=== PATIENT | female | born 1990 | race Two or more races ===

== ENCOUNTER 2021-12-01 08:33 | Outpatient (CLI) | payer OTHER | END 2021-12-01 10:00 | disposition home or self-care (01) | LOC: PRENATAL 08:33 | PROVIDERS: ATTEND Obstetrics & Gynecology Maternal & Fetal Medicine | DX: O36.80X0 Pregnancy with inconclusive fetal viability, not applicable or unspecified (principal); Z36.0 Encounter for antenatal screening for chromosomal anomalies; Z3A.13 13 weeks gestation of pregnancy; Z14.8 Genetic carrier of other disease ==

== ENCOUNTER 2022-01-23 13:33 | Outpatient (CLI) | payer OTHER | END 2022-01-23 14:55 | disposition home or self-care (01) | LOC: PRENATAL 13:33 | PROVIDERS: ATTEND Obstetrics & Gynecology Maternal & Fetal Medicine | DX: O35.0XX0 Maternal care for (suspected) central nervous system malformation in fetus, not applicable or unspecified (principal); O35.3XX0 Maternal care for (suspected) damage to fetus from viral disease in mother, not applicable or unspecified; Z14.8 Genetic carrier of other disease; Z3A.21 21 weeks gestation of pregnancy ==

== ENCOUNTER 2022-04-28 11:55 | Outpatient (CLI) | payer OTHER ==
[2022-04-29] MEDS ORDERED: PRENATAL CAPLE1 EAC1 PO (05:40)
== END 2022-04-28 14:15 | disposition home or self-care (01) ==
LOC: PRENATAL 11:55
PROVIDERS: ATTEND Obstetrics & Gynecology Maternal & Fetal Medicine
DX: O26.849 Uterine size-date discrepancy, unspecified trimester (principal); O36.8199 Decreased fetal movements, unspecified trimester, other fetus; O41.00X0 Oligohydramnios, unspecified trimester, not applicable or unspecified; Z3A.34 34 weeks gestation of pregnancy

== ENCOUNTER 2022-04-29 05:18 | Inpatient (IN) | payer OTHER ==
[~2022-04-29] VITALS: Ht 162.6 cm; Wt 2.7 kg
[2022-04-29] MEDS ORDERED: PRENATAL CAPLE1 EAC1 PO (05:40)
== END 2022-05-08 12:35 | disposition home or self-care (01) | DRG 787 ==
LOC: OBS/DEL 05:18 → LDR 09:57 → OB/GYN 09:57 → LDR 21:55 → OB/GYN 05-05 10:20
PROVIDERS: ADMIT Obstetrics & Gynecology; ATTEND Obstetrics & Gynecology
PROC: 4A1HXCZ Monitoring of Products of Conception, Cardiac Rate, External Approach (ICD-10-PCS; 2022-04-29)
PROC: BY4CZZZ Ultrasonography of Second Trimester, Single Fetus (ICD-10-PCS; 2022-05-04)
PROC: 10D00Z1 Extraction of Products of Conception, Low, Open Approach (ICD-10-PCS; principal; 2022-05-05 12:15)
DX: O42.012 Preterm premature rupture of membranes, onset of labor within 24 hours of rupture, second trimester (principal); O41.03X0 Oligohydramnios, third trimester, not applicable or unspecified; O36.8130 Decreased fetal movements, third trimester, not applicable or unspecified; Z3A.35 35 weeks gestation of pregnancy; Z37.0 Single live birth; Z20.822 Contact with and (suspected) exposure to COVID-19